=== PATIENT | male | born 1955 | race Caucasian/White ===

== ENCOUNTER 2017-10-31 12:24 | Emergency (ER) | payer SELFPAY ==
[~2017-10-31] VITALS: Ht 180.3 cm; Wt 91.0 kg
[2017-10-31] MEDS ORDERED: IOHEXOL 350 MG/ML 10 ML VIAL (for RAD DIAG) IVCONTRAST ONE (12:25)
[2017-10-31 12:28] VITALS: BP 169/78; PULSE 91; RESP 20; TEMP 98.1; O2SAT 100
[2017-10-31] MEDS ORDERED: SODIUM CHLORIDE 0.9% FLUSH 10 ML FLUSH IV FLUSH PRN (12:45)
[2017-10-31] MEDS ORDERED: ONDANSETRON ODT 4 MG TAB PO ONE (12:45)
[2017-10-31] MEDS ORDERED: SODIUM CHLOR 0.9% 1000 ML INJ 1,000 ML IV SCH (12:45)
[2017-10-31] MEDS ORDERED: MORPHINE SULFATE 4 MG/ML INJ IV PUSH ONE (12:45)
--- NOTE | 2017-10-31 12:51 | PD ---
HPI Chief Complaint: GI Complaint Time Seen by Provider: 12:32 Travel History International Travel<30 days: No Contact w/Intl Traveler<30days: No Traveled to known affect area: No History of Present Illness HPI The patient is a 62-year-old male who presents to the emergency department for nausea, vomiting, diarrhea, and abdominal pain. The patient states he had a [employer] yesterday, he had chicken, coleslaw, and mashed potatoes. The patient states he had a female manager eligibility to 8 the white meat, she has no symptoms, however, he ate the dark meat developed symptoms. The patient thinks he has food poisoning. He denies any fever, chills, or sweats. He does complain of pain to the left lower quadrant that is crampy, sharp, nonradiating. He denies any associated dysuria, frequency, or urgency. The patient has have a history of diabetes but is currently noncompliant secondary to insurance related issues. PFSH Past Medical History Diabetes: Yes Patient Takes Glucophage: No Past Surgical History Tonsillectomy: Yes Social History Alcohol Use: No Tobacco Use: No Substance Use: No Allergies-Medications (Allergen,Severity, Reaction): Coded Allergies: No Known Allergies (Verified Allergy, Unknown, 10/31/17) Reported Meds & Prescriptions Reported Meds & Active Scripts Active No Active Prescriptions or Reported Medications Review of Systems Except as stated in HPI: all other systems reviewed are Neg General / Constitutional: No: Fever, Chills HENT: No: Lightheadedness Cardiovascular: No: Chest Pain or Discomfort Respiratory: No: Shortness of Breath Gastrointestinal: Positive: Nausea, Vomiting, Diarrhea, Abdominal Pain, Other ( Bloating) Genitourinary: No: Dysuria Musculoskeletal: No: Edema Physical Exam Narrative GENERAL: Awake, alert, pleasant 62-year-old male who appears his stated age and is in no acute respiratory distress. SKIN: Focused skin assessment warm/dry. HEAD: Atraumatic. Normocephalic. EYES: Pupils equal and round. No injection or drainage. ENT: No nasal bleeding or discharge. No visible teeth. NECK: Trachea midline. No JVD. CARDIOVASCULAR: Regular rate and rhythm. No murmur appreciated. RESPIRATORY: No accessory muscle use. Clear to auscultation. Breath sounds equal bilaterally. GASTROINTESTINAL: Abdomen distended, tender to palpation left lower quadrant. No guarding or rigidity. MUSCULOSKELETAL: No obvious deformities. No clubbing. No cyanosis. No edema. NEUROLOGICAL: Awake and alert. No obvious cranial nerve deficits. Motor grossly within normal limits. Normal speech. Nonfocal. PSYCHIATRIC: Appropriate mood and affect; insight and judgment normal. Data Data Last Documented VS Vital Signs Date Time Temp Pulse Resp B/P (MAP) Pulse Ox O2 Delivery O2 Flow Rate FiO2 10/31/17 12:56 97 Room Air 10/31/17 12:28 98.1 91 20 169/78 (108) Orders Orders Complete Blood Count With Diff (10/31/17 12:45) Comprehensive Metabolic Panel (10/31/17 12:45) Lipase (10/31/17 12:45) Lactic Acid (10/31/17 12:45) Urinalysis - C+S If Indicated (10/31/17 12:45) Ct Abd/Pel W Iv Contrast(Rout) (10/31/17 12:45) Iv Access Insert/Monitor (10/31/17 12:45) Ecg Monitoring (10/31/17 12:45) Oximetry (10/31/17 12:45) Morphine Inj (Morphine Inj) (10/31/17 12:45) Sodium Chlor 0.9% 1000 Ml Inj (Ns 1000 M (10/31/17 12:45) Sodium Chloride 0.9% Flush (Ns Flush) (10/31/17 12:45) Ondansetron Odt (Zofran Odt) (10/31/17 12:45) Sodium Chlor 0.9% 1000 Ml Inj (Ns 1000 M (10/31/17 14:15) Lactic Acid (10/31/17 14:40) Iohexol 350 Inj (Omnipaque 350 Inj) (10/31/17 12:25) Labs Laboratory Tests Test 10/31/17 12:50 10/31/17 14:45 10/31/17 15:10 White Blood Count 10.0 TH/MM3 Red Blood Count 4.92 MIL/MM3 Hemoglobin 16.1 GM/DL Hematocrit 46.2 % Mean Corpuscular Volume 93.8 FL Mean Corpuscular Hemoglobin 32.6 PG Mean Corpuscular Hemoglobin Concent 34.8 % Red Cell Distribution Width 13.9 % Platelet Count 175 TH/MM3 Mean Platelet Volume 7.4 FL Neutrophils (%) (Auto) 85.9 % Lymphocytes (%) (Auto) 7.8 % Monocytes (%) (Auto) 5.9 % Eosinophils (%) (Auto) 0.1 % Basophils (%) (Auto) 0.3 % Neutrophils # (Auto) 8.5 TH/MM3 Lymphocytes # (Auto) 0.8 TH/MM3 Monocytes # (Auto) 0.6 TH/MM3 Eosinophils # (Auto) 0.0 TH/MM3 Basophils # (Auto) 0.0 TH/MM3 CBC Comment DIFF FINAL Differential Comment Blood Urea Nitrogen 15 MG/DL Creatinine 1.04 MG/DL Random Glucose 212 MG/DL Total Protein 8.6 GM/DL Albumin 3.7 GM/DL Calcium Level 8.7 MG/DL Alkaline Phosphatase 219 U/L Aspartate Amino Transf (AST/SGOT) 34 U/L Alanine Aminotransferase (ALT/SGPT) 29 U/L Total Bilirubin 1.3 MG/DL Sodium Level 135 MEQ/L Potassium Level 4.1 MEQ/L Chloride Level 101 MEQ/L Carbon Dioxide Level 21.7 MEQ/L Anion Gap 12 MEQ/L Estimat Glomerular Filtration Rate 72 ML/MIN Lactic Acid Level 3.5 mmol/L 2.0 mmol/L Lipase 83 U/L Urine Color YELLOW Urine Turbidity CLEAR Urine pH 6.0 Urine Specific [place] 1.038 Urine Protein NEG mg/dL Urine Glucose (UA) NEG mg/dL Urine Ketones NEG mg/dL Urine Occult Blood NEG Urine Nitrite NEG Urine Bilirubin NEG Urine Urobilinogen 4.0 OR GREATER mg/dL Urine Leukocyte Esterase NEG Urine RBC 1 /hpf Urine WBC 3 /hpf Urine Squamous Epithelial Cells <1 /hpf Urine Mucus FEW /lpf Microscopic Urinalysis Comment CULT NOT INDICATED MDM Medical Decision Making Medical Screen Exam Complete: Yes Emergency Medical Condition: Yes Medical Record Reviewed: Yes Interpretation(s) Last Impressions Abdomen/Pelvis CT 10/31/17 1245 Signed Impressions: CONCLUSION: 1. Bilateral inguinal adenopathy with nodes measuring up to 3.2 cm. 2. Linear scarring along the inferior pulmonary ligament left lower lung. 3. 2.6 cm smooth margin lesion adjacent to the posterior gastric fundus is of uncertain significance. This could represent either diverticulum or ulcerative lesion from the stomach. Laboratory Tests Test 10/31/17 12:50 10/31/17 14:45 10/31/17 15:10 White Blood Count 10.0 TH/MM3 Red Blood Count 4.92 MIL/MM3 Hemoglobin 16.1 GM/DL Hematocrit 46.2 % Mean Corpuscular Volume 93.8 FL Mean Corpuscular Hemoglobin 32.6 PG Mean Corpuscular Hemoglobin Concent 34.8 % Red Cell Distribution Width 13.9 % Platelet Count 175 TH/MM3 Mean Platelet Volume 7.4 FL Neutrophils (%) (Auto) 85.9 % Lymphocytes (%) (Auto) 7.8 % Monocytes (%) (Auto) 5.9 % Eosinophils (%) (Auto) 0.1 % Basophils (%) (Auto) 0.3 % Neutrophils # (Auto) 8.5 TH/MM3 Lymphocytes # (Auto) 0.8 TH/MM3 Monocytes # (Auto) 0.6 TH/MM3 Eosinophils # (Auto) 0.0 TH/MM3 Basophils # (Auto) 0.0 TH/MM3 CBC Comment DIFF FINAL Differential Comment Blood Urea Nitrogen 15 MG/DL Creatinine 1.04 MG/DL Random Glucose 212 MG/DL Total Protein 8.6 GM/DL Albumin 3.7 GM/DL Calcium Level 8.7 MG/DL Alkaline Phosphatase 219 U/L Aspartate Amino Transf (AST/SGOT) 34 U/L Alanine Aminotransferase (ALT/SGPT) 29 U/L Total Bilirubin 1.3 MG/DL Sodium Level 135 MEQ/L Potassium Level 4.1 MEQ/L Chloride Level 101 MEQ/L Carbon Dioxide Level 21.7 MEQ/L Anion Gap 12 MEQ/L Estimat Glomerular Filtration Rate 72 ML/MIN Lactic Acid Level 3.5 mmol/L 2.0 mmol/L Lipase 83 U/L Urine Color YELLOW Urine Turbidity CLEAR Urine pH 6.0 Urine Specific [place] 1.038 Urine Protein NEG mg/dL Urine Glucose (UA) NEG mg/dL Urine Ketones NEG mg/dL Urine Occult Blood NEG Urine Nitrite NEG Urine Bilirubin NEG Urine Urobilinogen 4.0 OR GREATER mg/dL Urine Leukocyte Esterase NEG Urine RBC 1 /hpf Urine WBC 3 /hpf Urine Squamous Epithelial Cells <1 /hpf Urine Mucus FEW /lpf Microscopic Urinalysis Comment CULT NOT INDICATED Differential Diagnosis Differential diagnosis includes gastroenteritis, food poisoning, gastritis, peptic ulcer disease, pancreatitis, partial small bowel obstruction, enteritis, colitis, diverticulitis. Narrative Course IV was established, labs are drawn and sent, and the patient was placed on cardiac telemetry monitoring and continuous pulse oximetry monitoring. The patient was administered morphine, Zofran, and IV fluids. CT of the abdomen and pelvis with IV contrast was performed. The patient's CBC is unremarkable, however, lactic acid was elevated at 3.5. Therefore, second liter of IV fluids was ordered. CT the abdomen and pelvis as noted, possible gastric ulcerative lesion, inguinal lymphadenopathy, but no other acute inflammation noted. A repeat lactic acid level was ordered. The patient's lactic acid repeat was 2.0. Patient most likely has gastroenteritis versus food poisoning. He will be discharged with a prescription for Zofran and/or Phenergan as needed. He is advised to have clear liquid diet and advance as tolerated. Plenty fluids to stay hydrated. Follow-up with a primary physician. Diagnosis Primary Impression: Nausea vomiting and diarrhea Patient Instructions: General Instructions Additional Instructions: Please provide the patient a copy of his CT results and lab results at discharge. Follow-up with gastroenterology as needed. Zofran and Phenergan as needed. Clear liquid diet and advance as tolerated. Plenty fluids to stay hydrated. Return if symptoms worsen or progress. Med/Other Pt SpecificInfo: Prescription(s) given Scripts Promethazine (Phenergan) 25 Mg Tablet 25 MG PO Q6H Y for NAUSEA OR VOMITING, #10 TAB 0 Refills Prov: Tone Reilly MD 10/31/17 Ondansetron Odt (Zofran Odt) 4 Mg Tab 4 MG SL Q6HR Y for Nausea/Vomiting, #10 TAB 0 Refills Prov: Tone Reilly MD 10/31/17 Disposition: 01 DISCHARGE HOME Condition: Stable Tone Reilly MD Oct 31, 2017 12:51
[2017-10-31 12:56] VITALS: O2SAT 97
[2017-10-31 13:17] LABS: AUTOMATED NEUTROPHIL # 8.5 TH/MM3 (1.8-7.7); BASOPHIL % 0.3 % (0.0-2.0); EOSINOPHIL % 0.1 % (0.0-4.0); HEMATOCRIT 46.2 % (39.0-51.0); HEMOGLOBIN 16.1 GM/DL (13.0-17.0); LYMPH % 7.8 % (9.0-44.0); LYMPHOCYTE # 0.8 TH/MM3 (1.0-4.8); MEAN CELL VOLUME 93.8 FL (80.0-100.0); MEAN CORPUSCULAR HEMOGLOBIN 32.6 PG (27.0-34.0); MEAN CORPUSCULAR HGB CONC 34.8 % (32.0-36.0); MEAN PLATELET VOLUME 7.4 FL (7.0-11.0); MONO % 5.9 % (0.0-8.0); MONOCYTE # 0.6 TH/MM3 (0-0.9); NEUT % 85.9 % (16.0-70.0); PLATELET COUNT 175 TH/MM3 (150-450); RED BLOOD COUNT 4.92 MIL/MM3 (4.50-5.90); RED CELL DISTRIBUTION WIDTH 13.9 % (11.6-17.2)
[2017-10-31 13:38] LABS: ALBUMIN 3.7 GM/DL (3.4-5.0); AST (GOT) 34 U/L (15-37); BICARBONATE 21.7 MEQ/L (21.0-32.0); BLOOD UREA NITROGEN 15 MG/DL (7-18); CALCIUM 8.7 MG/DL (8.5-10.1); CHLORIDE 101 MEQ/L (98-107); CREATININE 1.04 MG/DL (0.60-1.30); GLOMERULAR FILTRATION RATE 72 ML/MIN (>89); GLUCOSE,RANDOM 212 MG/DL (74-106); SODIUM (NA) 135 MEQ/L (136-145)
[2017-10-31 13:42] LABS: ALKALINE PHOSPHATASE 219 U/L (45-117); ALT (GPT) 29 U/L (12-78); TOTAL BILIRUBIN ADULT 1.3 MG/DL (0.2-1.0); TOTAL PROTEIN 8.6 GM/DL (6.4-8.2)
[2017-10-31] MEDS ORDERED: SODIUM CHLOR 0.9% 1000 ML INJ 1,000 ML IV ONE (14:15)
--- NOTE | 2017-10-31 14:54 | RADRPT ---
EXAM DATE: 10/31/2017 2:45 PM EDT AGE/SEX: 62 years / Male INDICATIONS: Patient complains of cramping, nausea, vomiting since yesterday. CLINICAL DATA: This is the patient's initial encounter. Patient reports that signs and symptoms have been present for 1 day and indicates a pain score of 5/10. MEDICAL/SURGICAL HISTORY: Diabetes. None. ORAL CONTRAST: No oral contrast ingested. RADIATION DOSE: 18.40 CTDI (mGy) COMPARISON: No prior exams available for comparison. TECHNIQUE: Multiple contiguous axial images were obtained through the abdomen and pelvis following b olus infusion of 95 ml Omnipaque 350 (iohexol) nonionic water-soluble contrast as a single exam dos e. No oral contrast ingested. Using automated exposure control and adjustment of the mA and/or kV ac cording to patient size, the radiation dose was kept as low as reasonably achievable to obtain optima l diagnostic quality images. FINDINGS: Lower Lungs: Vertical linear opacity in the posterior medial left lung suggesting scarring along the inferior pulmonary ligament. No evidence of pleural effusion. Liver: The liver has a homogeneous density without space-occupying lesion. There is no dilation of th e biliary tree. No calcified gallstones. Spleen: Homogeneous density without enlargement. Pancreas: Unremarkable without mass or calcification. Kidneys: Normal in size and shape. No evidence of mass or hydronephrosis. There is a solitary 3 mm c alcification in the midpole collecting system left kidney. 5 mm cortical cyst lower pole left kidney. Adrenal Glands: Unremarkable. Aorta: The aorta and proximal iliac vessels are grossly unremarkable without aneurysmal dilation. Bowel/Mesentery: There is a 2.6 cm smooth margin low density lesion is in contact with the inferior gastric fundus near the GE junction. No dilated loops of small or large bowel. No evidence of free fl uid. Abdominal Wall: Intact. Retroperitoneum: No evidence of adenopathy in the retrocrural, para-aortic, or deep pelvic regions. Bladder: Contours are smooth. Reproductive Organs: No abnormal masses or calcifications seen. Inguinal: Bilateral femoral adenopathy with infrainguinal lymph nodes measuring up to 3.1 cm. No himanshu dence of inguinal hernia. Bony Structures: Unremarkable. CONCLUSION: 1. Bilateral inguinal adenopathy with nodes measuring up to 3.2 cm. 2. Linear scarring along the inferior pulmonary ligament left lower lung. 3. 2.6 cm smooth margin lesion adjacent to the posterior gastric fundus is of uncertain significance . This could represent either diverticulum or ulcerative lesion from the stomach. Electronically signed by: Hugo Armendariz MD 10/31/2017 2:52 PM EDT
[2017-10-31 15:58] LABS: BILIRUBIN, URINE NEG (NEG); BLOOD, URINE NEG (NEG); GLUCOSE,URINE NEG (NEG); KETONE, URINE NEG (NEG); MUCUS URINE FEW /lpf (OCC); NITRITE,URINE NEG (NEG); SQUAMOUS EPITHELIAL CELL URINE <1 /hpf (0-5); URINE COLOR YELLOW (YELLW/STRAW); URINE LEUKOCYTE ESTERASE NEG (NEG)
[2017-10-31] MEDS ORDERED: PROM25TA10 PO (16:17)
[2017-10-31] MEDS ORDERED: ZOFR4TAB3 SL (16:17)
[2017-10-31 17:10] VITALS: BP 139/60; PULSE 74; RESP 17; O2SAT 95
== END 2017-10-31 17:51 | disposition home or self-care (01) ==
LOC: NEPC 12:24
DX: R11.2 Nausea with vomiting, unspecified (principal); R19.7 Diarrhea, unspecified; R10.9 Unspecified abdominal pain; E11.9 Type 2 diabetes mellitus without complications; Z91.19 Patient's noncompliance with other medical treatment and regimen
CPT/HCPCS: 74177; 80053; 81001; 83605; 83690; 85025; 96361; 96374; 99284; J2270; J7030; Q9967

== ENCOUNTER 2018-02-20 21:11 | Observation (INO) ==
[2018-02-20 21:47] VITALS: RESP 18
[2018-02-20 22:32] LABS: Alanine Aminotransferase 36 U/L (12-78)
[2018-02-20 22:36] LABS: Albumin 3.4 g/dL (3.4-5.0); Alkaline Phosphatase 225 U/L (45-117); Anion Gap 7 meq/L (5-15); Aspartate Aminotransferase 49 U/L (15-37); Blood Urea Nitrogen 15 mg/dL (7-18); Calcium 8.9 mg/dL (8.5-10.1); Carbon Dioxide 25.7 meq/L (21.0-32.0); Chloride 105 meq/L (98-107); Creatine Kinase 155 U/L (39-308); Glomerular Filtration Rate 81 mL/min (>89); Glucose,Random 129 mg/dL (74-106); Sodium 138 meq/L (136-145)
--- NOTE | 2018-02-20 22:37 | XR ---
EXAM DATE: 02/20/2018 9:57 PM EDT AGE/SEX: 62 years / Male INDICATIONS: Chest pain. CLINICAL DATA: This is the patient's initial encounter. Patient reports that signs and symptoms have been present for 3 days and indicates a pain score of 5/10. MEDICAL/SURGICAL HISTORY: None. None. COMPARISON: No prior exams available for comparison. FINDINGS: A single AP view of the chest demonstrates the lungs to be symmetrically aerated without evidence of mass, infiltrate or effusion. The cardiomediastinal contours are unremarkable. Osseous structures a re intact. CONCLUSION: The lungs are clear. Electronically signed by: Hugo Armendariz MD 02/20/2018 10:36 PM EDT
[2018-02-20 22:38] LABS: Total Protein 8.2 g/dL (6.4-8.2)
[2018-02-20 22:39] LABS: Potassium 4.7 meq/L (3.5-5.1)
[2018-02-20] MEDS ORDERED: Aspirin 325 MG Tablet PO ONE (22:41)
[2018-02-20 22:51] LABS: Creatine Kinase MB 1.4 ng/mL (0.5-3.6)
[2018-02-20 23:11] LABS: Baso % (Auto) 0.6 % (0.0-2.0); Eos # (Auto) 0.1 th/mm3 (0.0-0.4); Eos % (Auto) 1.4 % (0.0-4.0); Hematocrit 36.7 % (39.0-51.0); Hemoglobin 12.7 gm/dL (13.0-17.0); Lymph # (Auto) 1.1 th/mm3 (1.0-4.8); Lymph % (Auto) 21.8 % (9.0-44.0); Mean Corpuscular HGB Conc 34.5 % (32.0-36.0); Mean Corpuscular Hemoglobin 32.8 pg (27.0-34.0); Mean Corpuscular Volume 94.9 fL (80.0-100.0); Mean Platelet Volume 7.9 fL (7.0-11.0); Mono # (Auto) 0.5 th/mm3 (0.0-0.9); Mono % (Auto) 9.8 % (0.0-8.0); Neut # (Auto) 3.3 th/mm3 (1.8-7.7); Neut % (Auto) 66.4 % (16.0-70.0); Platelet Count 118 th/mm3 (150-450); Red Blood Count 3.86 mil/mm3 (4.50-5.90); Red Cell Distribution Width 13.7 % (11.6-17.2); White Blood Count 4.9 th/mm3 (4.0-11.0)
--- NOTE | 2018-02-20 23:13 | ED ---
HPI General Chief Complaint: Chest Pain Stated Complaint: chest pain Time Seen by Provider: 02/20/18 21:48 Source: patient Mode of arrival: ambulatory Limitations: no limitations History of Present Illness HPI narrative: 62-year-old male the presents to the ED for evaluation of chest pain on and off for the past 3 days. Per patient pain gets worse at night and on the evening. Patient denies any urinary or bowel movement issues. No abdominal pain. No nausea or vomiting. He does still having some shortness of breath with the chest pain. Denies any history of heart disease. Patient he does have a history of diabetes and was told that he had diabetes. He takes no medications however. He does have a history of high blood pressure. Denies any history of heart disease. Does smoke on occasion. States that the pain is mostly to the right side and goes to the left side. Denies any trauma or injury. Per patient he is also noted that he has had facial numbness to the right side of the face. Denies any trauma or injury. No numbness, tingling, weakness to any other area of the body. Per patient the pain currently is 5 out of 10. Feels like a pressure. Does not radiate but mainly to the chest. No history of surgeries to the abdomen. No history of stress test ever. Related Data Home Medications Medication Instructions Recorded Confirmed No Known Home Medications 02/20/18 02/20/18 Allergies Allergy/AdvReac Type Severity Reaction Status Date / Time No Known Allergies Allergy Verified 02/20/18 21:38 Review of Systems ROS: all other systems reviewed are negative [facility] Medical History Medical History Diabetes (Acute) Neuropathy (Acute) Social History Social History Substance History: No History of Abuse Second Hand Smoke Exposure: No Smoking Status: Never smoker How Often Do You Have a Drink Containing Alcohol: Never Recent Travel in [facility] within the Last 8 Weeks: No Recent Out of Country Travel within the Last 8 Weeks: No Immunization History Tetanus Immunization: Unsure Exam Narrative Exam Narrative: GENERAL: Well appearing SKIN: Focused skin assessment warm/dry. HEAD: Atraumatic. Normocephalic. EYES: Pupils equal and round 4 mm reactive to light and accommodation.. No scleral icterus. No injection or drainage. EOM intact bilaterally. ENT: No nasal bleeding or discharge. Mucous membranes pink and moist. Tongue is midline. No uvula deviation. Mild facial droop noted on the lip. Otherwise for the most part intact. NECK: Trachea midline. No JVD. CARDIOVASCULAR: Regular rate and rhythm. No murmur appreciated. RESPIRATORY: No accessory muscle use. Clear to auscultation. Breath sounds equal bilaterally. GASTROINTESTINAL: Abdomen soft, non-tender, nondistended. Hepatic and splenic margins not palpable. MUSCULOSKELETAL: No obvious deformities. No clubbing. No cyanosis. No edema. Full range of motion of the upper and lower extremities bilaterally. 2+ pulses bilaterally. NEUROLOGICAL: Awake and alert. No obvious cranial nerve deficits. Motor grossly within normal limits. Normal speech. PSYCHIATRIC: Appropriate mood and affect; insight and judgment normal. Course Initial Documented Vital Signs Temperature 97.2 F L 02/20/18 21:36 Pulse Rate 67 02/20/18 21:36 Respiratory Rate 16 02/20/18 21:36 Blood Pressure 157/69 H 02/20/18 21:36 Pulse Oximetry 100 02/20/18 21:36 Last Documented Vital Signs Temperature 97.2 F L 02/20/18 21:36 Pulse Rate 57 L 02/20/18 21:47 Respiratory Rate 18 02/20/18 22:02 Blood Pressure 148/69 H 02/20/18 21:47 Pulse Oximetry 97 02/20/18 22:02 Medical Decision Making MDM Narrative Medical decision making narrative: 62-year-old male the presents to the ED for evaluation of chest pain and numbness to the right side of the face. Patient was properly examined and was found to have signs and symptoms concerning for ACS. Labs and imaging ordered. Labs and imaging were negative for acute disease. At this time a recommend admission to chest pain center for further evaluation as patient does have risk factors including hypertension, age, family history. Patient agrees with this plan. Patient was admitted to the chest pain center. Patient still in some discomfort so he was given morphine for pain. Patient understands reasons to being admitted. Patient agrees with plan. Case discussed with my attending Dr. Felix who agrees to admission to the chest pain center. Patient was admitted to chest pain center by me. Orders placed by me. Medical Screen Exam Complete: Yes Emergency Medical Condition: Yes Differential Diagnosis Differential Diagnosis: Facial paralysis versus numbness versus CVA versus ES versus chest pain versus atypical chest pain Medical Records Medical records reviewed: Yes I reviewed the patient's medical records. Lab Data Lab results reviewed: Yes I reviewed the patient's lab results. Lab results narrative: Troponin and CK-MB negative. Result diagrams: 02/20/18 22:52 02/20/18 22:02 Lab Results 02/20/18 02/20/18 Range/Units 22:02 22:52 WBC 4.9 (4.0-11.0) th/mm3 RBC 3.86 L (4.50-5.90) mil/mm3 Hgb 12.7 L (13.0-17.0) gm/dL Hct 36.7 L (39.0-51.0) % MCV 94.9 (80.0-100.0) fL MCH 32.8 (27.0-34.0) pg MCHC 34.5 (32.0-36.0) % RDW 13.7 (11.6-17.2) % Plt Count 118 L (150-450) th/mm3 MPV 7.9 (7.0-11.0) fL Neut % (Auto) 66.4 (16.0-70.0) % Lymph % (Auto) 21.8 (9.0-44.0) % [place] % (Auto) 9.8 H (0.0-8.0) % Eos % (Auto) 1.4 (0.0-4.0) % Baso % (Auto) 0.6 (0.0-2.0) % Neut # (Auto) 3.3 (1.8-7.7) th/mm3 Lymph # (Auto) 1.1 (1.0-4.8) th/mm3 [place] # (Auto) 0.5 (0.0-0.9) th/mm3 Eos # (Auto) 0.1 (0.0-0.4) th/mm3 Baso # (Auto) 0.0 (0.0-0.2) th/mm3 WBC Differential . Differential Comment Auto diff final Sodium 138 (136-145) meq/L Potassium 4.7 (3.5-5.1) meq/L Chloride 105 (98-107) meq/L Carbon Dioxide 25.7 (21.0-32.0) meq/L Anion Gap 7 (5-15) meq/L BUN 15 (7-18) mg/dL Creatinine 0.94 (0.60-1.30) mg/dL Estimated GFR 81 L (>89) mL/min Random Glucose 129 H (74-106) mg/dL Calcium 8.9 (8.5-10.1) mg/dL Total Bilirubin 0.7 (0.2-1.0) mg/dL AST 49 H (15-37) U/L ALT 36 (12-78) U/L Alkaline Phosphatase 225 H (45-117) U/L Total Creatine Kinase 155 (39-308) U/L CK-MB (CK-2) 1.4 (0.5-3.6) ng/mL Troponin I Less than 0.02 L (0.02-0.05) ng/mL Total Protein 8.2 (6.4-8.2) g/dL Albumin 3.4 (3.4-5.0) g/dL Imaging Data Attestation: I personally reviewed and interpreted this imaging study as follows : Radiologist's impression: Chest X-Ray 02/20/18 21:57 CONCLUSION: The lungs are clear. Head CT 02/20/18 22:11 CONCLUSION: No acute intracranial abnormality is identified. . ECG Data Attestation: I personally reviewed and interpreted this ECG as follows: Interpretation: EKG shows sinus rhythm with no sign of acute ischemia or arrhythmia. Ventricular rate of 58 bpm, VA interval of 204 ms. More specifically no ST elevations or signs of ischemia. Read by me and attending Dr. Felix. Discharge Plan Discharge Disposition Patient Disposition: 30 Still Patient Discharge Details Diagnosis: Chest pain Physicians Team ED Provider: William Tenorio ED Midlevel Provider: Dayne Recinos Primary Care Provider: Primary Care Dorcas Darden Rxs /Orders / Referrals /Forms Prescriptions: No Action No Known Home Medications RF: 0 Discharge Instructions Patient Printed Instructions: Chest Pain (ED) Status ED Status: With Doctor
--- NOTE | 2018-02-20 23:19 | CT ---
EXAM DATE: 02/20/2018 10:45 PM EDT AGE/SEX: 62 years / Male INDICATIONS: Headache. CLINICAL DATA: This is the patient's initial encounter. Patient reports that signs and symptoms have been present for 1 day and indicates a pain score of 6/10. MEDICAL/SURGICAL HISTORY: Diabetes. None. RADIATION DOSE: 66.34 CTDI (mGy) COMPARISON: No prior exams available for comparison. TECHNIQUE: CT of the head without contrast. Using automated exposure control and adjustment of the mA and/or kV according to patient size, radiation dose was kept as low as reasonably achievable to ob tain optimal diagnostic quality images. DICOM format image data is available electronically for revi ew and comparison. FINDINGS: Cerebrum: There is mild generalized atrophy and ventricles are normal given the degree of atrophy. M ild periventricular white matter change is present. No midline shift, mass lesion, hemorrhage or acu te infarction. No extraaxial fluid collections are seen. Posterior Fossa: The cerebellum and brainstem demonstrate no acute abnormality. The 4th ventricle is midline. The cerebellopontine angle is within normal limits. Extracranial: The visualized sinuses are clear. Skull: The calvaria is intact. No skull fracture. CONCLUSION: No acute intracranial abnormality is identified. . Electronically signed by: David Agarwal MD 02/20/2018 11:18 PM EDT
[2018-02-20] MEDS ORDERED: Morphine Inj 4 MG/ML Vial IV.PUSH ONE (23:25)
[2018-02-20] MEDS ORDERED: Acetaminophen 500 MG Tablet PO PRN (23:25)
[2018-02-20] MEDS ORDERED: Morphine Inj 4 MG/ML Vial IV.PUSH PRN (23:25)
[2018-02-21 01:35] LABS: Creatine Kinase 112 U/L (39-308)
[2018-02-21 01:48] LABS: Creatine Kinase MB 1.2 ng/mL (0.5-3.6)
[2018-02-21 04:47] LABS: Creatine Kinase 73 U/L (39-308)
[2018-02-21] MEDS ORDERED: Regadenoson Inj 0.4 MG/5 ML Syringe IV.PUSH ONE (10:28)
--- NOTE | 2018-02-21 10:37 | P.HPCA ---
History of Present Illness Primary Care Physician: No Primary Care Physician Chief Complaint: Chest pain History of Present Illness: 62-year-old male who denies past significant medical history presents emergency room for further evaluation of intermittent, nonexertional chest pain. Onset 3 days. Location substernal. Characterizes a gradual increase in pressure. Mild to severe in severity. Duration varies from 2-20 minutes. No precipitating or relieving factors. Associated symptoms include slight shortness of breath. Denies nausea, vomiting, or diaphoresis. Denies similar pain in the past. No recent illness or fever. Endorses recent sprain of ankle , therefore requiring crutches. No known coronary artery disease. Non-smoker. Past cardiac testing None Social history No known coronary artery disease, diabetes, hypertension, hyperlipidemia. Lifelong non-smoker. Denies any alcohol or or recreational drug use. Currently requiring crutches due to recent sprain of ankle. Family history Noncontributory for early onset cardiovascular disease. Endorses both parents had some sort heart issues, details uncertain. - Diagnosis (1) Chest pain of unknown etiology (2) Left ankle injury (3) Elevated random blood glucose level Review of Systems All other systems reviewed negative except as stated in HPI PMFSH - History History Provided By: Patient - Medical History Medical History: Medical History (Last Reviewed 02/20/18 @ 23:10 by MIKHAIL Kelsey) Diabetes Neuropathy - Tobacco History Second Hand Smoke Exposure: Yes Tobacco Use In Past 30 Days: No Smoking Status: Former smoker - Alcohol History How Often Do You Have a Drink Containing Alcohol: Never - Substance Use History Substance History: No History of Abuse - Travel History Recent Travel in the [place] Within the Last 8 Weeks: No Recent Travel Out of the Country Within the Last 8 Weeks: No - Immunization History Tetanus Immunization: Unsure Medications and Allergies Active Medications: Active Medications Acetaminophen (Tylenol) 500 mg PO Q4H PRN PRN Reason: HEADACHE Last Admin: 02/21/18 08:55 Dose: 500 mg Hydrocodone Bitart/Acetaminophen ([place] 7.5/325) 1 tab PO Q4H PRN PRN Reason: PAIN SCALE 1 TO 7 Morphine Sulfate (Morphine Inj) 2 mg IV.PUSH Q4H PRN PRN Reason: PAIN SCALE 8 TO 10 Ondansetron HCl (Zofran Inj) 4 mg IV.PUSH Q6H PRN PRN Reason: NAUSEA Sodium Chloride (Ns Flush) 2 ml IV.FLUSH UNSCH PRN PRN Reason: FLUSH AFTER USING IV ACCESS Sodium Chloride (Ns Flush) 2 ml IV.FLUSH BID JAYDON Last Admin: 02/21/18 08:55 Dose: 2 ml Sodium Chloride (Ns Flush) 2 ml IV.FLUSH PRN PRN PRN Reason: FLUSH AFTER USING IV ACCESS Allergies Allergy/AdvReac Type Severity Reaction Status Date / Time No Known Allergies Allergy Verified 02/20/18 21:38 Home Medications Medication Instructions Recorded Confirmed Type No Known Home Medications 02/20/18 02/20/18 History Exam Vital signs: Vital Signs 02/20/18 21:36 02/20/18 21:47 02/20/18 22:02 Temperature 97.2 F L Pulse Rate 67 57 L Respiratory Rate 16 18 18 Blood Pressure 157/69 H 148/69 H Pulse Oximetry 100 99 97 02/21/18 00:00 02/21/18 04:00 02/21/18 08:00 Temperature 97.5 F L 97.2 F L Pulse Rate 50 L 65 47 L Respiratory Rate 18 18 Blood Pressure 154/68 H 138/66 Pulse Oximetry 96 100 02/21/18 08:45 02/21/18 09:00 Temperature 98.6 F Pulse Rate 52 L 47 L Respiratory Rate 18 Blood Pressure 145/71 H Pulse Oximetry 98 98 Intake & Output 02/20/18 02/21/18 02/21/18 18:59 06:59 18:59 Intake Total 0 / 0 Balance 0 / 0 Weight 95.254 kg Intake: Oral 0 / 0 Other: # Voids 0 Date of Last Bowel Movement 02/20/18 02/20/18 Weight On Admission 95.254 kg Narrative: GENERAL: Alert WN, WD, NAD, pleasant, overweight, male who appears older than stated age HEAD: NC, AT EYES: Sclera clear, conjunctiva without injection, pupils equal and round ENT: Mucous membranes pink and moist, no nasal discharge or bleeding NECK: Supple, no masses, trachea midline CV: RRR, without murmur, rub, gallop, no JVD, S1-S2. Chest wall nontender to palpation. RESP: Clear lungs throughout bilateral, no crackles, wheeze, rhonchi, symmetrical chest rise, nonlabored, able to speak in full sentences ABD: Soft, NT, ND, no masses, positive bowel tones EXT: Pulses +2x4, no dependent edema MS: Normal tone x4 extremities, nontender, no obvious deformities, full range of motion NEURO: CN II through CN XII grossly intact, motor strength 5/5 PSYCH: A+O x3, pleasant affect, appropriate speech, mood, insight and judgment SKIN: Normal turgor, normal texture, solar damage, no lesions, no rashes, unkempt, discolored nails Results 02/20/18 22:52 02/20/18 22:02 Cardiac Enzymes 02/20/18 02/21/18 02/21/18 Range/Units 22:02 00:52 04:06 AST 49 H (15-37) U/L CK-MB (CK-2) 1.4 1.2 (0.5-3.6) ng/mL Troponin I Less than 0.02 L Less than 0.02 L Less than 0.02 L (0.02-0.05) ng/mL CBC 02/20/18 Range/Units 22:52 WBC 4.9 (4.0-11.0) th/mm3 RBC 3.86 L (4.50-5.90) mil/mm3 Hgb 12.7 L (13.0-17.0) gm/dL Hct 36.7 L (39.0-51.0) % Plt Count 118 L (150-450) th/mm3 Neut # (Auto) 3.3 (1.8-7.7) th/mm3 Lymph # (Auto) 1.1 (1.0-4.8) th/mm3 [place] # (Auto) 0.5 (0.0-0.9) th/mm3 Eos # (Auto) 0.1 (0.0-0.4) th/mm3 Baso # (Auto) 0.0 (0.0-0.2) th/mm3 Comprehensive Metabolic Panel 02/20/18 Range/Units 22:02 Sodium 138 (136-145) meq/L Potassium 4.7 (3.5-5.1) meq/L Chloride 105 (98-107) meq/L Carbon Dioxide 25.7 (21.0-32.0) meq/L BUN 15 (7-18) mg/dL Creatinine 0.94 (0.60-1.30) mg/dL Calcium 8.9 (8.5-10.1) mg/dL AST 49 H (15-37) U/L ALT 36 (12-78) U/L Alkaline Phosphatase 225 H (45-117) U/L Total Protein 8.2 (6.4-8.2) g/dL Albumin 3.4 (3.4-5.0) g/dL Intake and Output 02/20/18 02/21/18 02/21/18 22:59 06:59 14:59 Intake Total 0 / 0 Balance 0 / 0 Intake: Oral 0 / 0 Other: # Voids 0 Date of Last Bowel Movement 02/20/18 02/20/18 Weight 95.254 kg 95.254 kg Weight On Admission 95.254 kg - Imaging and Cardiology Imaging: Impressions Chest X-Ray 02/20/18 21:57 CONCLUSION: The lungs are clear. Head CT 02/20/18 22:11 CONCLUSION: No acute intracranial abnormality is identified. . EKG interpretations - EKG EKG results cardiology: sinus rhythm, normal axis, normal QRS, normal ST/T Caprini VTE Risk Assessment Caprini VTE Risk Assessment: Moderate/High Risk (score >= 2) Caprini Risk Assessment Model: Point Value = 1 Point Value = 2 Point Value = 3 Point Value = 5 Age 41-60 Minor surgery BMI > 25 kg/m2 Swollen legs Varicose veins or History of unexplained or recurrent spontaneous Oral contraceptives or hormone replacement Sepsis (< 1 month) Serious lung disease, including pneumonia (< 1 month) Abnormal pulmonary function Acute myocardial infarction Congestive heart failure (< 1 month) History of inflammatory bowel disease Medical patient at bed rest Age 61-74 Arthroscopic surgery Major open surgery (> 45 min) Laparoscopic surgery (> 45 min) Malignancy Confined to bed (> 72 hours) Immobilizing plaster cast Central venous access Age >= 75 History of VTE Family history of VTE Factor V Leiden Prothrombin [id number] Lupus anticoagulant Anticardiolipin antibodies Elevated serum homocysteine Heparin-induced thrombocytopenia Other congenital or acquired thrombophilia Stroke (< 1 month) Elective arthroplasty Hip, pelvis, or leg fracture Acute spinal cord injury (< 1 month) Prophylaxis Regimen: Total Risk Factor Score Risk Level Prophylaxis Regimen 0-1 Low Early ambulation 2 Moderate Order ONE of the following: *Sequential Compression Device (SCD) *Heparin 5000 units SQ BID 3-4 Higher Order ONE of the following medications: *Heparin 5000 units SQ TID *Enoxaparin/Lovenox 40 mg SQ daily (WT < 150 kg, CrCl > 30 mL/min) *Enoxaparin/Lovenox 30 mg SQ daily (WT < 150 kg, CrCl > 10-29 mL/min) *Enoxaparin/Lovenox 30 mg SQ BID (WT < 150 kg, CrCl > 30 mL/min) AND/OR *Sequential Compression Device (SCD) 5 or more Highest Order ONE of the following medications: *Heparin 5000 units SQ TID (Preferred with Epidurals) *Enoxaparin/Lovenox 40 mg SQ daily (WT < 150 kg, CrCl > 30 mL/min) *Enoxaparin/Lovenox 30 mg SQ daily (WT < 150 kg, CrCl > 10-29 mL/min) *Enoxaparin/Lovenox 30 mg SQ BID (WT < 150 kg, CrCl > 30 mL/min) AND *Sequential Compression Device (SCD) Assessment and Plan - Assessment (1) Chest pain of unknown etiology Code(s): R07.89 - Other chest pain Status: Acute Plan: Admitted chest pain center. ACS ruled out 3 sets of EKGs and cardiac enzymes. Seen and evaluated by Dr. Trey Zavaelta. Received with Lexiscan, as patient is unable to walk on treadmill due to recent reported sprain ankle. If unremarkable, plans are to discharge home with follow-up with primary care provider. Verbalized understanding and agreeable to plan of care. 1210-Lexiscan unremarkable, no reversible areas to suggest ischemia. Discharge home this afternoon. Reports discussed with patient. Strongly encouraged establishing with a primary care provider. Made aware last 2 random glucose levels elevated, warranting further evaluation with HgA1c. Upon further discussion, reports history of diabetes but due to lack of insurance never followed up with PCP for refills of medications. Discussed need for follow up with PCP due to continue pain of left ankle. Given [facility] and [facility] numbers at discharge. (2) Left ankle injury Code(s): S99.912A - Unspecified injury of left ankle, initial encounter Status : Chronic Plan: Reports recent injury leaving left ankle sprained. ER record reviewed. 01/10/18 x ray of ankle conclusions-extensive degenerative changes. Calcite digital arterial which suggests diabetic atherosclerotic vascular disease. Discharged home with a Velcro stirrup splint and instructed to follow up with a PCP and/or orthpenis if symptoms persisted. (3) Elevated random blood glucose level Code(s): R73.09 - Other abnormal glucose Status: Acute Plan: Random blood glucose 129. Strongly encouraged him to establish with a primary care provider for further glucose testing. [facility] information will be provided upon discharge. H&P: Quality - VTE Deep Vein Thrombosis/Pulmonary Embolism Present on Admission: No (2) Left ankle injury Qualifiers: Encounter type: sequela Qualified Code(s): S99.912S - Unspecified injury of left ankle, sequela
[2018-02-21] MEDS ORDERED: Sod Chloride 0.9% Inj 1,000 ML IV.CONT SCH (10:39)
--- NOTE | 2018-02-21 11:37 | NM ---
EXAM DATE: 02/21/2018 10:20 AM EDT AGE/SEX: 62 years / Male INDICATIONS:Angina. . Substernal chest pain. CLINICAL DATA: This is the patient's initial encounter. Patient reports that signs and symptoms have been present for 3 days and indicates a pain score of 4/10. MEDICAL/SURGICAL HISTORY: Diabetes mellitus type II. None. COMPARISON: None. DOSE: 8.5 mCi Tc 99m Myoview at rest 25.4 mCi [id number] at stress 0.4 mg Lexiscan STRESS SYMPTOMS: Dyspnea and funny taste. EJECTION FRACTION: 58 % TECHNIQUE: The patient underwent pharmacologic stress with infusion of prescribed dose. Continuous ECG tracing was monitored during stress. Gated SPECT imaging was performed after stress and conventi onal SPECT imaging was performed at rest. The examination was performed on a SPECT/CT scanner, both attenuation and non-corrected datasets were reviewed. FINDINGS: Distribution: The maximum perfused segment at stress is in the inferior wall. Perfusion Study: The pattern of perfusion at stress is within normal limits. Gated Study: There are intact wall motion and wall thickening without hypokinetic or dyskinetic segm ents. The ejection fraction is calculated at 58%. RISK CATEGORY: Low (<1% Annual Motality Rate) CONCLUSION: 1. No reversible defects to suggest acute ischemia. Electronically signed by: Hugo Murillo MD 02/21/2018 11:36 AM EDT
[2018-02-21 13:12] VITALS: BP 145/75; PULSE 68; TEMP 98.4; O2SAT 100
--- NOTE | 2018-02-23 06:56 | TR ---
Date Performed: 02/21/2018 Time Performed: 10:37:30 DOCTOR: Zee Toussaint DRUG LIST: CLINICAL HISTORY: REASON FOR TEST: REASON FOR ENDING: OBSERVATION: CONCLUSION: Lexiscan stress test was performed under standard four minute protocol. Radionuclid e was injected one minute prior to ending the test. No electrocardiographic abormalities were present to suggest ischemia. Nuclear imaging and interpretation are pending. COMMENTS: Lexiscan stress test was performed under standard four minute protocol. Radionuclide was injected one minute prior to ending the test. No electrocardiographic abormalities were present t o suggest ischemia. Nuclear imaging and interpretation are pending.
--- NOTE | 2018-02-23 06:56 | ECG ---
Date Performed: 02/21/2018 Time Performed: 01:25:45 PTAGE: 62 years EKG: SINUS BRADYCARDIA WITH FIRST DEGREE AV BLOCK MODERATE VOLTAGE CRITERIA FOR LVH, CONSIDER NO RMAL VARIANT ABNORMAL ECG Since PREVIOUS TRACING , no significant change noted DOCTOR: Zee Toussaint Interpretating Date/Time 02/23/2018 06:55:33
--- NOTE | 2018-02-23 06:56 | ECG ---
Date Performed: 02/21/2018 Time Performed: 04:23:25 PTAGE: 62 years EKG: SINUS BRADYCARDIA WITH FIRST DEGREE AV BLOCK ABNORMAL ECG Since PREVIOUS TRACING , no significant change noted PREVIOUS TRACIN02/21/2018 01.25 DOCTOR: Zee Toussaint Interpretating Date/Time 02/23/2018 06:55:46
--- NOTE | 2018-02-23 06:56 | ECG ---
Date Performed: 02/20/2018 Time Performed: 21:48:58 PTAGE: 62 years EKG: SINUS BRADYCARDIA BORDERLINE LEFT AXIS DEVIATION MODERATE VOLTAGE CRITERIA FOR LVH, CONSIDE R NORMAL VARIANT BORDERLINE ECG NO PREVIOUS TRACING DOCTOR: Zee Toussaint Interpretating Date/Time 02/23/2018 06:55:18
== END 2018-02-21 14:53 | disposition home or self-care (01) ==
LOC: NEPE 21:11 → NEDA 21:11 → NEPFCDU 02-21 00:11